=== PATIENT | male | born 1955 | race Two or more races ===

== ENCOUNTER 2020-06-14 06:46 | Day surgery (SDC) | payer OTHER | END 2020-06-14 11:35 | disposition home or self-care (01) | LOC: AMB-ENDOS 06:46 | PROVIDERS: ATTEND Colon & Rectal Surgery | DX: D12.3 Benign neoplasm of transverse colon (principal); K64.8 Other hemorrhoids ==

== ENCOUNTER → 2020-07-25 08:00 | Outpatient (CLI) | payer OTHER ==
[~2020-07-25] VITALS: Ht 180.3 cm; Wt 95.3 kg
[~2020-07-25 08:00] MED LIST: ATENOLO PO; METFORMIN PO; [UNRECOGNIZED DRUG - OTHER] PO
== END | disposition home or self-care (01) ==
LOC: ADM 08:00 → LAB 08:00 → SURH 07-28 07:00 → EDSTATUS 07-28 11:45 → SURH 07-28 11:45
PROVIDERS: ATTEND Colon & Rectal Surgery
DX: Z20.828 Contact with and (suspected) exposure to other viral communicable diseases (principal); R59.0 Localized enlarged lymph nodes